=== PATIENT | female | born 1965 ===

== ENCOUNTER 2017-12-20 10:25 | Emergency (ER) | payer MEDICAID ==
[2017-12-20 10:25] VITALS: BMI 32.0
[2017-12-20 11:27] VITALS: RESP 18; TEMP 98
--- NOTE | 2017-12-20 11:44 | ED PDOC ---
Arrival/HPI - General Chief Complaint: Lower Extremity Problem/Injury Time Seen by Provider: 12/20/17 11:21 Historian: Patient, Family (daughter) - History of Present Illness Narrative History of Present Illness (Text): 12/20/17 11:49 A 52 year old male, whose past medical history includes colon cancer (15 yrs ago , had operation done), presents to the emergency department complaining of right lower extremity pain starting since yesterday. Patient is Greek- speaking and translated by her daughter. Patient reports also experiencing right knee swelling as well. States she is unable to ambulated due to pain. Notes also experiencing right thigh pain. Patient denies back pain, right-side hip pain, trauma, or any other complaints at this time. Also, patient has been offered to be given pain medications, however patient refuses to be given any at this time. PMD: Dr. Cruz Verduzco Past Medical History - Provider Review Nursing Documentation Reviewed: Yes - Cardiac Hx Pacemaker: No - Pulmonary Hx Asthma: Yes - Neurological Hx Paralysis: No - Hematological/Oncological Hx Blood Transfusions: No Hx Blood Transfusion Reaction: No - Musculoskeletal/Rheumatological Hx Musculoskeletal Disorders: No - Gastrointestinal Other/Comment: colon CA - Psychiatric Hx Emotional Abuse: No Hx Physical Abuse: No Hx Substance Use: No - Surgical History Other/Comment: Colon CA - Anesthesia Hx Anesthesia: Yes Hx Anesthesia Reactions: No Hx Malignant Hyperthermia: No - Suicidal Assessment Feels Threatened In Home Enviroment: No Family/Social History - Physician Review Nursing Documentation Reviewed: Yes Family/Social History: No Known Family HX Smoking Status: Never Smoked Hx Alcohol Use: No Hx Substance Use: No Allergies/Home Meds Allergies/Adverse Reactions: Allergies aspirin Allergy (Severe, Verified 06/11/16 11:27) ANAPHYLAXIS latex Allergy (Severe, Verified 06/11/16 11:27) ANAPHYLAXIS Home Medications: Home Meds Medication Instructions Recorded Confirmed Ascorbate Calcium [Vitamin C] 1 tab PO DAILY 06/11/16 06/14/16 Ergocalciferol (Vitamin D2) 1 tab PO DAILY 06/11/16 06/14/16 [Vitamin D] Multivitamin [Daily Brian] 1 tab PO DAILY 06/11/16 06/14/16 Review of Systems - Physician Review All systems were reviewed & negative as marked: Yes - Review of Systems Constitutional: absent: Fevers Musculoskeletal: Other (pain to right knee and below; right thigh pain; no right -side hip pain). absent: Back Pain Physical Exam - Physical Exam Narrative Physical Exam (Text): Gen: VS reviewed, alert, well developed, well nourished, nontoxic, mild distress. ENT: normal pharynx Eye: EOMI, PERRL Neck: no JVD, supple, no adenopathy CV: regular rate, regular rhythm, no rubs, no murmur, no gallops, S1, S2, pulses equal and strong Pulm: no distress, clear to auscultation, no wheeze, no rhonchi, breath sounds equal, no rales Abd: soft, nontender, no guarding, no rebound, no rigidity, normal bowel sounds Ext: tenderness to right lateral knee, limited right knee ROM, no efusion appreciated, no warmth to touch Skin: good color, no rash, no cyanosis Psych: responds appropriately to questions, normal affect Neuro: oriented x 3, CN2-12 intact grossly, motor intact, sensation intact Vital Signs Reviewed: Yes Vital Signs Temp Pulse Resp BP Pulse Ox 12/20/17 15:20 77 18 125/80 99 12/20/17 10:25 98 F 79 18 136/82 98 Temperature: Afebrile Blood Pressure: Normal Pulse: Regular Respiratory Rate: Normal Appearance: Positive for: Well-Appearing, Non-Toxic, Comfortable Pain Distress: None Mental Status: Positive for: Alert and Oriented X 3 Medical Decision Making ED Course and Treatment: 12/20/17 11:50 Impression: 52 year old female with right lower extremity pain. Plan: -- Right Knee X-Ray -- Right Femur X-Ray -- POC Urine Test -- Duplex Lower Extremity Ultrasound -- Reassess and disposition Progress Notes: 12/20/17 12:08 patient with remote hx of colon cancer presents with reported spontaneous right lateral knee and thigh pain, will get xray to eval for possible bony pathology and will ge t lower extremity duplex to eval for low clinical suspicion for DVT 12/20/2017 13:33 Right Femur X-Ray IMPRESSION: Unremarkable radiographs of the right femur. Dictator: Teja Norton MD 12/20/2017 13:34 Right Knee X-Ray IMPRESSION: Normal radiographs of the right knee. Dictator: Teja Norton MD 12/20/17 14:46 US report prelim negative for DVT 12/20/17 14:46 right knee pain, no acute injury, no clinical s/s of infection or clinical evidence of effusion. ddx including but not limited to meninscus tear. patient referred to ortho for further eval. 12/20/2017 14:53 Duplex Lower Extremity Ultrasound IMPRESSION: 1. No sonographic evidence for deep venous thrombosis in the visualized segments of the right lower extremity. Dictator: Teja Harvey MD - RAD Interpretation Radiology Orders: 12/20/17 11:38 Femur Right [FEMUR MIN 2 VIEWS RT] [RAD] Stat KNEE RIGHT 2 VIEWS (AP & LAT) [RAD] Stat 12/20/17 11:39 DUPLEX LOWER EXTRM VEIN RIGHT [US] Stat - Medication Orders Current Medication Orders: Discontinued Medications Ketorolac Tromethamine (Toradol) 60 mg IM STAT STA Stop: 12/20/17 13:36 Last Admin: 12/20/17 13:50 Dose: 60 mg MAR Pain Assessment Document 12/20/17 13:50 EQ (Rec: 12/20/17 13:51 EQ [id number]) Pain Reassessment Is this a pain reassessment? No Sleep Is patient sleeping during reassessment? No Presence of Pain Presence of Pain Yes IM Administration Charges Document 12/20/17 13:50 EQ (Rec: 12/20/17 13:51 EQ [id number]) Charges for Administration # of IM Administrations 1 - Scribe Statement The provider has reviewed the documentation as recorded by the Scribe Miki Gilmore Provider Scribe Provider Scribe Attestation: All medical record entries made by the Scribe were at my direction and personally dictated by me. I have reviewed the chart and agree that the record accurately reflects my personal performance of the history, physical exam, medical decision making, and the department course for this patient. I have also personally directed, reviewed, and agree with the discharge instructions and disposition. Disposition/Present on Arrival - Present on Arrival Any Indicators Present on Arrival: No History of DVT/PE: No History of Uncontrolled Diabetes: No Urinary Catheter: No History of Decub. Ulcer: No History Surgical Site Infection Following: None - Disposition Have Diagnosis and Disposition been Completed?: Yes Diagnosis: Knee pain, acute Disposition: HOME/ ROUTINE Disposition Time: 14:47 Patient Plan: Discharge Condition: STABLE Discharge Instructions (ExitCare): Knee Pain (DC) Print Language: AUSTRALIAN Additional Instructions: You must follow up with the adoption specialist. MARCELO GUILLAUME, thank you for letting us take care of you today. Your provider was Dr. Homero Pak and you were treated for knee pain. The emergency medical care you received today was directed at your acute symptoms. If you were prescribed any medication, please fill it and take as directed. It may take several days for your symptoms to resolve. Return to the Emergency Department if your symptoms worsen, do not improve, or if you have any other problems. Please contact your doctor or call one of the physicians/clinics you have been referred to that are listed on the Patient Visit Information form that is included in your discharge packet. Bring any paperwork you were given at discharge with you along with any medications you are taking to your follow up visit. Our treatment cannot replace ongoing medical care by a primary care provider outside of the emergency department. Thank you for allowing the [facility] team to be part of your care today. If you had an X-Ray or CT scan: A Radiologist will review the ED reading if any change in treatment is needed we will contact you. If you had a blood, urine, or wound culture: It will take several days for the results, if any change in treatment is needed we will contact you. If you had an STI test: It will take 48 hours for the results. Please call after 1 week if you have not heard back. Prescriptions: Ibuprofen [Motrin Tab] 600 mg PO QID #42 tab Referrals: Jose Alberto Verduzco MD [Primary Care Provider] - Follow up with primary Jh Horn MD [Staff Provider] - Follow up with primary [facility] [Outside] - Follow up with primary Forms: [employer] (Amharic), WORK NOTE
--- NOTE | 2017-12-20 13:35 | RAD ---
Date of service: 12/20/2017 PROCEDURE: Right Femur Radiographs. HISTORY: lateral knee pain COMPARISON: None. TECHNIQUE: AP and Lateral Radiographs of the right femur. FINDINGS: FEMUR: Normal. No fracture. SOFT TISSUES: Normal. OTHER FINDINGS: None. IMPRESSION: Unremarkable radiographs of the right femur.
--- NOTE | 2017-12-20 13:36 | RAD ---
Date of service: 12/20/2017 PROCEDURE: Right Knee Radiographs. HISTORY: lateral knee pain COMPARISON: None. FINDINGS: BONES: Normal. No fracture. JOINTS: Normal. No osteoarthritis. JOINT EFFUSION: None. OTHER FINDINGS: None. IMPRESSION: Normal radiographs of the right knee.
--- NOTE | 2017-12-20 14:55 | US ---
PROCEDURE: Right lower extremity venous US HISTORY: Leg pain and swelling. Evaluate for DVT. PHYSICIAN(S): Teja Harvey M.D. TECHNIQUE: Duplex sonography and color-flow Doppler with graded compression were used to evaluate the deep venous system of the right lower extremity. FINDINGS: The visualized deep venous system of the right lower extremity is sonographically normal and compressible. Normal waveforms and augmentation are seen. There is no sonographic evidence for deep venous thrombosis in the visualized segments of the right lower extremity. IMPRESSION: 1. No sonographic evidence for deep venous thrombosis in the visualized segments of the right lower extremity.
[2017-12-20 16:53] VITALS: BP 125/80; PULSE 77; O2SAT 99
== END 2017-12-20 15:20 | disposition home or self-care (01) ==
LOC: ED 10:25
DX: M25.561 Pain in right knee (principal); Z85.038 Personal history of other malignant neoplasm of large intestine
CPT/HCPCS: 73552; 73560; 93971; 96372; 99283; J1885